=== PATIENT | male | born 1980 | race African-American/Black ===

== ENCOUNTER 2016-11-05 12:23 | Emergency (ER) | payer SELFPAY ==
[~2016-11-05] VITALS: Ht 165.1 cm; Wt 72.0 kg
[2016-11-05] MEDS ORDERED: IBUPROFEN 600MG TABLET PO ONE (13:30)
[2016-11-05 13:32] VITALS: BP 112/63
== END 2016-11-05 17:15 | disposition home or self-care (01) ==
LOC: ER 12:23
PROC: 2W3CX1Z Immobilization of Right Lower Arm using Splint (ICD-10-PCS; principal; 2016-11-05)
DX: S62.141A Displaced fracture of body of hamate [unciform] bone, right wrist, initial encounter for closed fracture (principal); X58.XXXA Exposure to other specified factors, initial encounter; Y93.89 Activity, other specified
CPT/HCPCS: 29125; 73130; 99284

== ENCOUNTER 2016-12-03 11:31 | Emergency (ER) | payer SELFPAY ==
[~2016-12-03] VITALS: Ht 167.6 cm; Wt 73.0 kg
[2016-12-03 12:18] VITALS: BP 111/60
== END 2016-12-03 17:11 | disposition left against medical advice (07) ==
LOC: ER 16:41
DX: M79.601 Pain in right arm (principal); Z53.21 Procedure and treatment not carried out due to patient leaving prior to being seen by health care provider

== ENCOUNTER 2019-06-04 11:30 | Emergency (ER) | payer OTHER ==
[~2019-06-04] VITALS: Ht 170.2 cm; Wt 64.0 kg
[2019-06-04] MEDS ORDERED: KETOROLAC 30MG/ML VIAL IM ONE (12:45)
[2019-06-04] MEDS ORDERED: HYDROCODONE/ACETAMINOPHEN 5/325MG TABLET PO ONE (13:00)
[2019-06-04 13:34] LABS: CLARITY URINE CLEAR (CLEAR); COLOR URINE YELLOW (YELLOW); KETONES URINE NEGATIVE (NEGATIVE); LEUKOCYTE ESTERASE URINE NEGATIVE (NEGATIVE); NITRITE URINE NEGATIVE (NEGATIVE); OCCULT BLOOD URINE NEGATIVE (NEGATIVE); PROTEIN URINE NEGATIVE (NEGATIVE); SPECIFIC GRAVITY URINE 1.021 (1.005-1.030)
[2019-06-04 14:00] VITALS: BP 121/75
== END 2019-06-04 14:14 | disposition home or self-care (01) ==
LOC: ER 11:30
DX: M62.830 Muscle spasm of back (principal); M54.9 Dorsalgia, unspecified; F32.9 Major depressive disorder, single episode, unspecified
CPT/HCPCS: 76770; 81003; 99284; J1885

== ENCOUNTER 2020-01-11 04:36 | Emergency (ER) | payer OTHER ==
[~2020-01-11] VITALS: Ht 175.3 cm; Wt 77.0 kg
[2020-01-11 06:18] VITALS: BP 111/76
[2020-01-11] MEDS ORDERED: IBUPROFEN 800MG TABLET PO ONE (06:30)
[2020-01-11] MEDS ORDERED: IBUPROFEN 800MG TABLET PO NR (07:10)
== END 2020-01-11 07:57 | disposition home or self-care (01) ==
LOC: ER 04:36
DX: S00.83XA Contusion of other part of head, initial encounter (principal); S80.212A Abrasion, left knee, initial encounter; S80.211A Abrasion, right knee, initial encounter; S60.512A Abrasion of left hand, initial encounter; S60.511A Abrasion of right hand, initial encounter; F32.9 Major depressive disorder, single episode, unspecified; Y04.0XXA Assault by unarmed brawl or fight, initial encounter; Y93.89 Activity, other specified; Y92.018 Other place in single-family (private) house as the place of occurrence of the external cause
CPT/HCPCS: 93005; 99284